=== PATIENT | female | born 1985 | race Caucasian/White ===

== ENCOUNTER 2019-06-30 20:27 | Emergency (ER) | payer MEDICAID ==
[~2019-06-30] VITALS: Ht 167.6 cm; Wt 97.1 kg
[2019-06-30 20:51] VITALS: BP 108/72
[2019-06-30] MEDS ORDERED: KETOROLAC 30 MG/ML VIAL IM ONE (21:40)
[2019-06-30] MEDS ORDERED: ONDANSETRON 4 MG ODT PO ONE (21:45)
[2019-06-30 22:08] LABS: APPEARANCE,URINE CLEAR (CLEAR); BILIRUBIN,URINE 2+ (NEGATIVE); BLOOD, URINE 1+ (NEGATIVE); COLOR,URINE YELLOW (YELLOW); LEUKOCYTE ESTERASE ,URINE TRACE (NEGATIVE); NITRITE, URINE NEGATIVE (NEGATIVE); UGLUCOSE NEGATIVE (NEGATIVE)
[2019-06-30 22:44] LABS: ANION GAP 11.4 (8-16); CARBON DIOXIDE 30.6 mmol/L (21-32); CREATININE 0.9 mg/dL (0.6-1.3)
[2019-06-30 22:51] LABS: BASOPHILS # (AUTO) 0.1 K/uL (0.00-0.22); BASOPHILS % (AUTO) 3.1 % (0.0-2.0); HEMATOCRIT 41.8 % (36-48); HEMOGLOBIN 13.9 g/dL (12.0-16.0); LYMPHOCYTES # (AUTO) 1.6 K/uL (2.5-16.5); MEAN CORPUSCULAR HEMOGLOBIN 31 pg (27-31); MEAN CORPUSCULAR HGB CONC 33 g/dL (33-37); MEAN CORPUSCULAR VOLUME 93.4 fL (80-94); MONOCYTES # (AUTO) 0.2 K/uL (0.8-1.0); MONOCYTES % (AUTO) 7.2 % (1.7-9.3); NEUTROPHILS # (AUTO) 0.9 K/uL (1.8-7.7); NEUTROPHILS % (AUTO) 31.8 % (42.2-75.2); PLATELET COUNT (AUTO) 151 K/uL (140-450); RED BLOOD CELL COUNT(AUTO) 4.47 MIL/uL (4.20-5.40); RED CELL DISTRIBUTION WIDTH 13.8 % (11.6-13.7)
[2019-06-30 22:52] LABS: RBC,URINE 20-50 /HPF (0-5)
[2019-06-30 22:57] LABS: LYMPHOCYTES % (AUTO) 57.9 % (20.5-51.1); WHITE BLOOD COUNT (AUTO) 2.7 K/uL (4.8-10.8)
[2019-06-30 23:30] LABS: ALBUMIN 3.5 g/dL (3.4-5.0); BILIRUBIN,DIRECT 0.6 mg/dL (0.0-0.3)
[2019-07-01 00:05] VITALS: BP 112/76
== END 2019-07-01 00:05 | disposition home or self-care (01) ==
LOC: MED 20:27
DX: R51 Headache (principal); N39.0 Urinary tract infection, site not specified; H92.03 Otalgia, bilateral; Z98.890 Other specified postprocedural states
CPT/HCPCS: 36415; 70450; 80048; 80076; 81001; 85025; 87086; 96372; 99284; J1885; Q0162

== ENCOUNTER 2019-09-07 12:34 | Emergency (ER) | payer MEDICAID ==
[~2019-09-07] VITALS: Ht 167.6 cm; Wt 99.8 kg
[2019-09-07 12:36] VITALS: BP 126/77
--- NOTE | 2019-09-07 12:49 | NUR ---
34 Y/O FEMALE FROM HOME C/O LT ANKLE PAIN S/P DRINKING AND DOES NOT REMEMBER WHAT HAPPENED 3 WKS AGO. PT STATES PAIN AND SWELLING HAS BEEN CONSISTENT SINCE. NOTICABLE SWELLLING AND SLIGHT BRUISING TO LT ANKLE. +CMS, +PULSES. 8/10 ACHING/SHARP PAIN WORSE WITH AMBULATION. SKIN WARM, DRY, AND INTACT. VSS MEDHX: DENIES ALLERGIES: NASREENA
--- NOTE | 2019-09-07 13:09 | NUR ---
X-RAY AT BEDSIDE
--- NOTE | 2019-09-07 13:16 | NUR ---
DR SILVA AT BEDSIDE EXAMINING PT
[2019-09-07] MEDS ORDERED: IBUPROFEN 800 MG TAB PO ONE (13:20)
--- NOTE | 2019-09-07 13:42 | NUR ---
LONG POSTERIOR AND STIRRUP SPLINT APPLIED TO PTS RT ANKLE. SKIN WARM AND INTACT. +CMS AFTER APPLICATION OF SPLINT. PT VERBALIZES AND RETURN DEMONSTRATES USE OF CRUTHES.
--- NOTE | 2019-09-07 13:45 | NUR ---
PT LEFT FOOT WAS PLACED IN LONG LEG POSTERIOR SPLINT AND STIRRUP SPLINT, PT CMS WNL BEFORE AND AFTER. PT SPLINT FABRICATED FROM 4" FIBERGLASS SPLINT AND WRAPPED WITH X4 6" GUERRERO WRAPS. PT WAS GIVEN CRUTCHES AND WAS PROPERLY SHOWED HOW TO USE CRUTHCES, PT DEMENSTRATED PROPER USE OF CRUTCHES AND STATES THEY FELT COMFORTABLE AND CONFIDENT WHEN USING CRUTCHES. RN NOTIFIED.
[2019-09-07 14:14] VITALS: BP 126/77
--- NOTE | 2019-09-07 14:14 | NUR ---
Patient discharged with v/s stable. Written and verbal after care instructions given and explained. Patient alert, oriented and verbalized understanding of instructions. Wheel Chair Assisted with to car. All questions addressed prior to discharge. ID band removed. Patient advised to follow up with PMD. Rx of IBUPROFEN 800MG given. Patient educated on indication of medication including possible reaction and side effects. Opportunity to ask questions provided and answered.
== END 2019-09-07 14:14 | disposition home or self-care (01) ==
LOC: MED 12:34
DX: S82.402A Unspecified fracture of shaft of left fibula, initial encounter for closed fracture (principal); X58.XXXA Exposure to other specified factors, initial encounter; Y93.89 Activity, other specified; Y92.89 Other specified places as the place of occurrence of the external cause; Y99.8 Other external cause status
CPT/HCPCS: 29515; 73610; 81025; 99283

== ENCOUNTER 2023-02-12 09:44 | Emergency (ER) | payer MEDICAID ==
[~2023-02-12] VITALS: Ht 167.6 cm; Wt 102.1 kg
[2023-02-12 09:46] VITALS: BP 113/77; PULSE 63; RESP 18; TEMP 97.5; O2SAT 97
[2023-02-12 10:20] LABS: APPEARANCE,URINE CLEAR (CLEAR); BILIRUBIN,URINE NEGATIVE (NEGATIVE); BLOOD, URINE TRACE-I (NEGATIVE); COLOR,URINE YELLOW (YELLOW); LEUKOCYTE ESTERASE ,URINE NEGATIVE (NEGATIVE); NITRITE, URINE NEGATIVE (NEGATIVE); PROTEIN,URINE NEGATIVE (NEGATIVE); UGLUCOSE NEGATIVE (NEGATIVE); UROBILINOGEN,URINE 0.2 EU/dL (0.2 - 1)
[2023-02-12] MEDS ORDERED: PYR100 PO (10:54)
[2023-02-12] MEDS ORDERED: IBUP-2213 PO (10:54)
[2023-02-12 11:07] VITALS: BP 110/74; PULSE 63; RESP 18; TEMP 97.5; O2SAT 97
== END 2023-02-12 11:08 | disposition home or self-care (01) ==
LOC: MED 09:44
DX: R30.0 Dysuria (principal); Z79.899 Other long term (current) drug therapy
CPT/HCPCS: 81003; 81025; 87491; 99283

== ENCOUNTER 2023-08-07 19:08 | Emergency (ER) | payer MEDICAID ==
[~2023-08-07] VITALS: Ht 165.1 cm; Wt 99.8 kg
[~2023-08-07 19:08] MED LIST: IBUP-2213 PO; PYR100 PO
[2023-08-07 19:30] VITALS: BP 129/84; PULSE 95; RESP 18; TEMP 98.6; O2SAT 98
[2023-08-07 20:17] LABS: APPEARANCE,URINE CLEAR (CLEAR); BILIRUBIN,URINE NEGATIVE (NEGATIVE); BLOOD, URINE TRACE-I (NEGATIVE); COLOR,URINE YELLOW (YELLOW); LEUKOCYTE ESTERASE ,URINE NEGATIVE (NEGATIVE); NITRITE, URINE NEGATIVE (NEGATIVE); PROTEIN,URINE NEGATIVE (NEGATIVE); UGLUCOSE NEGATIVE (NEGATIVE); UROBILINOGEN,URINE 0.2 EU/dL (0.2 - 1)
[2023-08-07] MEDS: KETOROLAC 30 MG/ML VIAL IM ONE (20:37)
[2023-08-07] MEDS: ACETAMINOPHEN 325 MG TAB PO ONE (20:39)
[2023-08-07 20:47] LABS: BASOPHILS # (AUTO) 0.1 K/uL (0.00-0.22); BASOPHILS % (AUTO) 0.8 % (0.0-2.0); EOSINOPHILS # (AUTO) 0.2 K/uL (0-0.4); EOSINOPHILS % (AUTO) 1.9 % (0.0-4.0); HEMOGLOBIN 12.1 g/dL (12.0-16.0); LYMPHOCYTES # (AUTO) 2.7 K/uL (2.5-16.5); LYMPHOCYTES % (AUTO) 29.2 % (20.5-51.1); MEAN CORPUSCULAR HEMOGLOBIN 27 pg (27-31); MEAN CORPUSCULAR HGB CONC 33 g/dL (33-37); MEAN CORPUSCULAR VOLUME 83.6 fL (80-94); MONOCYTES # (AUTO) 0.7 K/uL (0.8-1.0); MONOCYTES % (AUTO) 7.3 % (1.7-9.3); NEUTROPHILS # (AUTO) 5.6 K/uL (1.8-7.7); NEUTROPHILS % (AUTO) 60.8 % (42.2-75.2); PLATELET COUNT (AUTO) 306 K/uL (140-450); RED BLOOD CELL COUNT(AUTO) 4.42 MIL/uL (4.20-5.40); RED CELL DISTRIBUTION WIDTH 15.9 % (11.6-13.7); WHITE BLOOD COUNT (AUTO) 9.3 K/uL (4.8-10.8)
[2023-08-07 21:01] LABS: ANION GAP 10.7 (8-16); CALCIUM 8.9 mg/dL (8.5-10.1); CARBON DIOXIDE 29.1 mmol/L (21-32); CREATININE 0.9 mg/dL (0.6-1.3); POTASSIUM 3.8 mmol/L (3.5-5.1)
[2023-08-07 21:08] LABS: ALBUMIN 3.6 g/dL (3.4-5.0); BILIRUBIN,DIRECT 0.1 mg/dL (0.0-0.3); TOTAL BILIRUBIN 0.1 mg/dL (0.0-1.0); TOTAL PROTEIN, SERUM 7.8 g/dL (6.4-8.2)
[2023-08-07] MEDS ORDERED: LID5T TP (21:34)
[2023-08-07] MEDS ORDERED: IBUP-2213 PO (21:34)
[2023-08-07] MEDS: LIDOCAINE 5% 1 EA PATCH TP ONE (21:47)
== END 2023-08-07 21:49 | disposition home or self-care (01) ==
LOC: MED 19:08
DX: R10.11 Right upper quadrant pain (principal); M54.6 Pain in thoracic spine; Z79.899 Other long term (current) drug therapy
CPT/HCPCS: 36415; 71045; 76705; 80048; 80076; 81003; 81025; 83690; 85025; 96372; 99285; J1885; Q0092